=== PATIENT | female | born 1985 | race Two or more races ===

== ENCOUNTER 2021-01-07 13:45 | Inpatient (IN) | payer MEDICAID ==
[~2021-01-07] VITALS: Ht 162.6 cm; Wt 103.0 kg
[2021-01-07] MEDS ORDERED: IBUP-1957 PO (13:55)
[2021-01-07] MEDS ORDERED: HYDR-3980 PO (13:55)
[2021-01-07] MEDS ORDERED: AMOX500C2 PO (13:55)
--- NOTE | 2021-01-07 14:00 | NUR ---
at bedside for assessment
--- NOTE | 2021-01-07 14:03 | NUR ---
patient providing urine at this time
[2021-01-07 14:17] LABS: *BILIRUBIN,URIN 2+ (NEGATIVE); *BLOOD, URINE NEGATIVE (NEGATIVE); *CLARITY,URINE CLEAR (CLEAR); *COLOR,URINE YELLOW (YELLOW); *KETONES,URINE 1+ (NEGATIVE); *UROBILINOGEN,URINE >=8.0 E.U./dl (NORMAL); LEUKOCYTE ESTERASE ,URINE NEGATIVE (NEGATIVE); NITRITE, URINE NEGATIVE (NEGATIVE); UGLUCOSE TRACE (NEGATIVE)
[2021-01-07 14:18] LABS: *URINE HCG, QUAL NEGATIVE (NEGATIVE)
[2021-01-07] MEDS ORDERED: MAG HYDROX/AL HYDROX/SIMETH 30 ML LIQUID UDC PO ONE (14:30)
[2021-01-07] MEDS ORDERED: IV NORMAL SALINE 1000 ML BAG IV ONE ×2 (14:30→17:15)
[2021-01-07] MEDS ORDERED: ONDANSETRON 4 MG/2 ML VIAL IV ONE ×3 (14:30→19:15)
[2021-01-07] MEDS ORDERED: LIDOCAINE VISCUS 2% 15 ML UDC MM ONE (14:30)
[2021-01-07] MEDS ORDERED: PANTOPRAZOLE SODIUM 40 MG VIAL IV ONE (14:30)
[2021-01-07] MEDS ORDERED: ONDANSETRON 4 MG/2 ML VIAL ONE ×3 (14:39→19:13)
[2021-01-07] MEDS ORDERED: MAG HYDROX/AL HYDROX/SIMETH 30 ML LIQUID UDC ONE (14:39)
[2021-01-07] MEDS ORDERED: PANTOPRAZOLE SODIUM 40 MG VIAL ONE (14:40)
[2021-01-07] MEDS ORDERED: LIDOCAINE VISCUS 2% 15 ML UDC ONE (14:40)
[2021-01-07 14:46] LABS: BASOPHILS % (AUTO) 0.4 % (0.0-2.0); EOSINOPHILS # (AUTO) 0.1 K/uL (0.0-0.7); EOSINOPHILS % (AUTO) 1.3 % (0.0-7.0); HEMATOCRIT 40.2 % (31.2-41.9); HEMOGLOBIN 13.7 g/dL (10.9-14.3); LYMPHOCYTES # (AUTO) 1.9 K/uL (20.0-40.0); LYMPHOCYTES % (AUTO) 18.2 % (20.5-51.5); MEAN CORPUSCULAR HEMOGLOBIN 30.9 uug (24.7-32.8); MEAN CORPUSCULAR HGB CONC 34 g/dL (32.3-35.6); MEAN CORPUSCULAR VOLUME 90.7 fL (75.5-95.3); MONOCYTES # (AUTO) 0.7 K/uL (2.0-10.0); MONOCYTES % (AUTO) 6.4 % (0.0-11.0); NEUTROPHILS # (AUTO) 7.8 K/uL (1.8-8.9); NEUTROPHILS % (AUTO) 73.7 % (38.5-71.5); PLATELET COUNT (AUTO) 420 K/uL (179-408); RED BLOOD CELL COUNT(AUTO) 4.44 MIL/uL (3.63-4.92); WHITE BLOOD COUNT (AUTO) 10.6 K/uL (3.8-11.8)
--- NOTE | 2021-01-07 14:57 | NUR ---
Pt stated her pain is still 8-9/10, medicated with Morphine 4mg IV as ordered.
[2021-01-07] MEDS ORDERED: MORPHINE SULFATE 4 MG/1 ML DISP.SYRIN IV ONE ×4 (15:00→19:15)
--- NOTE | 2021-01-07 15:00 | NUR ---
US is progress at bedside.
[2021-01-07] MEDS ORDERED: MORPHINE SULFATE 4 MG/1 ML DISP.SYRIN ONE ×4 (15:02→19:13)
--- NOTE | 2021-01-07 15:12 | NUR ---
Pt appears more comfortable and states her pain is now 6/10 and does not need anymore pain medications at this time.
[2021-01-07 15:17] LABS: CREATININE 0.7 mg/dL (0.6-1.3); POTASSIUM 3.1 mmol/L (3.5-5.1)
[2021-01-07 15:21] LABS: BILIRUBIN,DIRECT 0.5 mg/dL (0.0-0.2); BILIRUBIN,TOTAL 0.9 mg/dL (0.2-1.0); TOTAL PROTEIN, SERUM 7.7 g/dL (6.4-8.2)
[2021-01-07] MEDS ORDERED: HYDROMORPHONE 1 MG/1 ML DISP.SYRIN IV ONE (15:30)
--- NOTE | 2021-01-07 15:33 | NUR ---
Pt states pain back up to 03/08, notified and pt medicated with Dilaudid 1mg IVP as ordered.
[2021-01-07] MEDS ORDERED: HYDROMORPHONE 1 MG/1 ML DISP.SYRIN ONE (15:36)
--- NOTE | 2021-01-07 15:40 | NUR ---
Patient taken to radiology for CT
[2021-01-07] MEDS ORDERED: SWABABLE VALVE TRANSFER SET EA MC ONE (15:47)
[2021-01-07] MEDS ORDERED: IV NORMAL SALINE 250 ML IV ONE (15:48)
[2021-01-07] MEDS ORDERED: IOHEXOL 300MG/ML 100 ML INFUS..BTL ONE (15:48)
--- NOTE | 2021-01-07 16:00 | NUR ---
Patient returned from CT at this time
--- NOTE | 2021-01-07 17:44 | NUR ---
MD Jairon villanueva for panel call
--- NOTE | 2021-01-07 17:55 | NUR ---
patient to be transferred to Edward Isaacs RN to accept patient
--- NOTE | 2021-01-07 19:10 | NUR ---
Received report from ALYX Wynne.
[2021-01-07] MEDS ORDERED: MORPHINE SULFATE 2 MG/1 ML DISP.SYRIN ONE (19:13)
--- NOTE | 2021-01-07 20:58 | NUR ---
Gave report to [facility] nurse otilio May going to room 318.
--- NOTE | 2021-01-07 21:10 | NUR ---
Pt. admitted to Med Surg, under care of Dr. De La O Dx: pancreatisis A/O x4, afebrile, ambulatory Belongs List completed
--- NOTE | 2021-01-07 21:20 | NUR ---
Patient admitted from Emergency Department with pancreatitis. Patient is alert and oriented x 4. Cooperative with assessment but restless due to pain. Patient expressed pain of 10/10 on the upper abdomen. Given 0.5ml of Dilaudid as ordered. IV on the LAC 20g. Patient is ambulatory. No reports of shortness of breath. Bed in low and locked position. Call light within reach. Will continue to monitor.
[2021-01-07] MEDS ORDERED: ONDANSETRON 4 MG/2 ML VIAL IV PRN (21:30)
[2021-01-07] MEDS ORDERED: HYDROMORPHONE 1 MG/1 ML DISP.SYRIN IV PRN (21:30)
[2021-01-07] MEDS ORDERED: ACETAMINOPHEN 325 MG TABLET PO PRN (21:30)
[2021-01-07] MEDS ORDERED: POTASSIUM CHLORIDE 50 ML IV SCH (21:30)
[2021-01-07] MEDS ORDERED: MAGNESIUM HYDROXIDE 30 ML LIQUID UDC PO PRN (21:30)
[2021-01-07] MEDS: ENOXAPARIN SODIUM 40 MG/0.4 ML DISP.SYRIN SQ SCH (22:04)
[2021-01-07] MEDS: IV LACTATED RINGERS SOLUTION 1,000 ML IV PRN (22:31)
[2021-01-07] MEDS ORDERED: MORPHINE SULFATE 4 MG/1 ML DISP.SYRIN IV PRN (23:00)
[2021-01-07] MEDS: MORPHINE SULFATE 4 MG/1 ML DISP.SYRIN IV PRN (23:10)
[2021-01-08] MEDS ORDERED: POTASSIUM CHLORIDE 20 MEQ TAB.PRT.SR PO ONE (00:45)
[2021-01-08] MEDS: MORPHINE SULFATE 4 MG/1 ML DISP.SYRIN IV PRN ×4 (04:24→16:30)
[2021-01-08 04:30] VITALS: BP 114/76
[2021-01-08 05:52] LABS: BASOPHILS % (AUTO) 0.3 % (0.0-2.0); EOSINOPHILS # (AUTO) 0.2 K/uL (0.0-0.7); EOSINOPHILS % (AUTO) 1.5 % (0.0-7.0); HEMATOCRIT 35.6 % (31.2-41.9); HEMOGLOBIN 11.9 g/dL (10.9-14.3); LYMPHOCYTES # (AUTO) 1.5 K/uL (20.0-40.0); MEAN CORPUSCULAR HEMOGLOBIN 30.7 uug (24.7-32.8); MEAN CORPUSCULAR HGB CONC 33 g/dL (32.3-35.6); MEAN CORPUSCULAR VOLUME 92.1 fL (75.5-95.3); MONOCYTES # (AUTO) 0.6 K/uL (2.0-10.0); NEUTROPHILS # (AUTO) 8.3 K/uL (1.8-8.9); NEUTROPHILS % (AUTO) 78.2 % (38.5-71.5); PLATELET COUNT (AUTO) 376 K/uL (179-408); RED BLOOD CELL COUNT(AUTO) 3.87 MIL/uL (3.63-4.92); WHITE BLOOD COUNT (AUTO) 10.6 K/uL (3.8-11.8)
[2021-01-08 06:11] LABS: BILIRUBIN,TOTAL 0.6 mg/dL (0.2-1.0); CREATININE 0.6 mg/dL (0.6-1.3); MAGNESIUM 1.9 mg/dL (1.8-2.4); TOTAL PROTEIN, SERUM 6.2 g/dL (6.4-8.2)
--- NOTE | 2021-01-08 06:23 | NUR ---
Patient resting in bed. She experienced abdominal pain that was not relieved by dilaudid. MD contacted, order for morphine received. Patient stated pain relief after morphine. Unable to tolerate IV KCL. Order for PO KCL received. Patient took 40 MEQ. IV on Left AC discontinued due to constant burning. New IV 20g on right upper arm. Patient slept well after pain subsided. No reports of shortness of breath at this time. Vital signs within normal limits. Call light within reach.
--- NOTE | 2021-01-08 07:30 | NUR ---
PATIENT RECEIVED IN BED, ALERT AND ORIENTED X4, STATES THAT HER ABDOMINAL PAIN IS CURRENTLY 8 OUT OF 10. HOT PACK PROVIDED PER PATIENT REQUEST AND SHE STATED THIS HELPS A LITTLE. WILL CONTINUE TO ADMINISTER MORPHINE ORDERED BECAUSE PER PATIENT IT DOES HELP. PATIENT STATES THAT SHE HAS NO OTHER DISCOMFORTS AT THIS TIME. RIGHT UPPER ARM 20G PATENT WITH NO REDNESS OR SWELLING, LR RUNNING AT 150 ML/H ORDERED. PATIENT ON ROOM AIR WITH NO SOB OR DIFFICULTIES BREATHING. PT REFUSES SCDS AT THIS TIME AND WAS EDUCATED ON THE IMPORTANCE OF DVT PREVENTION. CALL LIGHT AND PERSONAL BELONGINGS WITHIN EASY REACH. WILL CONTINUE TO MONITOR.
[2021-01-08] MEDS: NICOTINE 7 MG/24HR PATCH TD SCH (08:21)
[2021-01-08] MEDS: PANTOPRAZOLE SODIUM 40 MG VIAL IV SCH (08:21)
[2021-01-08] MEDS: IV LACTATED RINGERS SOLUTION 1,000 ML IV PRN ×2 (10:31→18:10)
[2021-01-08 11:21] VITALS: BP 109/63
--- NOTE | 2021-01-08 12:20 | NUR ---
PATIENTS SISTER AT BEDSIDE. PATIENT CONTINUES TO EXPERIENCE ABDOMINAL PAIN AND THE MORPHINE IS EFFECTIVE, BUT PATIENT STATES SHE STILL FEELS DISCOMFORT. INSTANT HOT PACK PROVIDED PER PATIENT REQUEST AND SHE STATED THIS HELPS A LITTLE. PATIENT STATES SHE WOULD LIKE TO ADVANCE HER DIET AND SHE IS NOT EXPERIENCING ANY N/V/D AT THIS TIME. MD NOTIFIED. WILL CONTINUE TO MONITOR.
--- NOTE | 2021-01-08 13:30 | NUR ---
DIET CHANGED TO FULL LIQUID DIET PER MD. WILL CONTINUE TO MONITOR TO ENSURE PATIENT IS TOLERATING.
[2021-01-08 15:13] VITALS: BP 112/75
--- NOTE | 2021-01-08 18:14 | NUR ---
Patient tolerated full liquid diet dinner with no N/V at this time. Patient is in bed with eyes open, states that she has no discomforts at this time. All needs met. IVF running at 150 mL/h as ordered, IV site on right upper arm is patent with no redness or swelling at this time. Call nur and personal belongings within easy reach. Will continue to monitor.
--- NOTE | 2021-01-08 19:30 | NUR ---
Patient report received. Awake, alert and oriented x 4. Patient resting in bed. No reports of shortness of breath. Comfortable on room air. Patient complained of mild abdominal pain. Given a hot pack. Stated relief. Skin intact. Ambulatory. Bed in low and locked position. Call light within reach.
[2021-01-08 20:18] VITALS: BP 111/76
[2021-01-08] MEDS: ENOXAPARIN SODIUM 40 MG/0.4 ML DISP.SYRIN SQ SCH (20:33)
[2021-01-09] MEDS: MORPHINE SULFATE 4 MG/1 ML DISP.SYRIN IV PRN ×2 (00:01→10:53)
[2021-01-09] MEDS: IV LACTATED RINGERS SOLUTION 1,000 ML IV PRN (01:37)
[2021-01-09 04:18] VITALS: BP 109/64
--- NOTE | 2021-01-09 06:30 | NUR ---
Patient seen resting in bed. Awake, alert and oriented x 4. Patient had abdominal pain over night. Given morphine as ordered at 0001. Patient slept well afterwards. Provided with heat packs as well to help relieve pain. Medications given as ordered. IV on ANNE patent, running LR at 150cc/hr. No reports of pain or shortness of breath at this time. Patient denies nausea. Refused morning blood draw. Bed in low and locked position. Call light within reach.
[2021-01-09] MEDS: NICOTINE 7 MG/24HR PATCH TD SCH (08:02)
[2021-01-09] MEDS: PANTOPRAZOLE SODIUM 40 MG VIAL IV SCH (08:10)
[2021-01-09 08:17] VITALS: BP 122/76
[2021-01-09] MEDS ORDERED: MAGNESIUM CITRATE 296 ML BOTTLE PO ONE (11:00)
[2021-01-09 12:05] VITALS: BP 129/90
[2021-01-09] MEDS ORDERED: HYDR-3974 PO (14:01)
--- NOTE | 2021-01-09 15:01 | NUR ---
dc orders received noted and carried out,dc heplock per md orders,dc instruction and education given to the pt .pt said she will follow up with her pcp in one week.pt left the facility via private car in stable condition
[2021-01-10] MEDS ORDERED: PANTOPRAZOLE SODIUM 40 MG TABLET.DR PO SCH (07:00)
== END 2021-01-09 15:30 | disposition home or self-care (01) | DRG 282 ==
LOC: ER 13:45 → MEDSURG3 21:01
PROVIDERS: ADMIT Nurse Practitioner Family; ATTEND Nurse Practitioner Family
DX: K85.90 Acute pancreatitis without necrosis or infection, unspecified (principal); E87.1 Hypo-osmolality and hyponatremia; E87.6 Hypokalemia; J98.11 Atelectasis; Z20.822 Contact with and (suspected) exposure to COVID-19; R74.01 Elevation of levels of liver transaminase levels; F17.210 Nicotine dependence, cigarettes, uncomplicated; Z71.6 Tobacco abuse counseling
CPT/HCPCS: 36415; 71045; 83690; 83735; 84703; 85025; A4663; A9150; C9113; G0378; J1170; J1650; J2270; J2405; J3480; J7030; J7050; J7120; Q9967

== ENCOUNTER 2021-07-20 00:16 | Emergency (ER) | payer MEDICAID ==
[~2021-07-20] VITALS: Ht 162.6 cm; Wt 95.3 kg
[~2021-07-20 00:16] MED LIST: HYDR-3974 PO; IBUP-1957 PO
--- NOTE | 2021-07-20 00:43 | NUR ---
DR. MOYA AT BEDSIDE, MSE IN PROGRESS.
[2021-07-20 00:58] VITALS: BP 130/77
--- NOTE | 2021-07-20 00:58 | NUR ---
Patient discharged to home in stable condition. Written and verbal after care instructions given. Patient verbalizes understanding of instructions. Stressed follow up or return to ER for worsening s/s. Denies any n/v/d. No pain/discomfort upon discharge. Steady gait.
== END 2021-07-20 00:59 | disposition home or self-care (01) ==
LOC: ER 00:21
DX: R11.0 Nausea (principal); Z86.39 Personal history of other endocrine, nutritional and metabolic disease
CPT/HCPCS: A4663